=== PATIENT | male | born 1985 | race Caucasian/White ===

== ENCOUNTER → 2021-08-01 | Outpatient (CLI) | payer BC, OTHER | LOC: NM 12:32 | DX: R14.0 Abdominal distension (gaseous) (principal); R11.0 Nausea | CPT/HCPCS: 78227; A9537 ==

== ENCOUNTER 2022-01-29 11:15 | Emergency (ER) | payer BC, OTHER ==
[2022-01-29 12:01] LABS: HEMOGLOBIN 17.8 gm/dl (14.0-17.5); RED BLOOD COUNT 5.51 M/UL (4.20-5.50); WHITE BLOOD COUNT 8.2 K/UL (4.5-11.0)
[2022-01-29 12:37] LABS: BUN/CREATININE RATIO 7 (0-10)
[2022-01-29] MEDS ORDERED: ZOFRAN 4 MG TAB4 MG PO (15:36)
[2022-01-29] MEDS ORDERED: METRONIDAZOLE500 MG PO (15:36)
[2022-01-29] MEDS ORDERED: CIPRO500 MG PO (15:36)
== END 2022-01-29 17:00 | disposition home or self-care (01) ==
LOC: ER1 11:15
PROVIDERS: Physician Assistant
DX: K52.9 Noninfective gastroenteritis and colitis, unspecified (principal)
CPT/HCPCS: 80053; 81001; 83690; 85025; 96374; 99284; J2405; Q9967